=== PATIENT | female | born 2005 | race Two or more races ===

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

== ENCOUNTER → 2025-05-21 | Outpatient (CLI) | payer MEDICAID, SELFPAY ==
--- NOTE | 2025-05-21 12:30 | XR_ITS ---
Examination: Abdomen sonogram, complete Date and time of exam: 05/21/2025 at 1:51 p.m. INDICATION: Epigastric pain for 6 months COMPARISON: None Technique: Multiple real-time grayscale transabdominal sonographic images of the abdomen have been obtained. Findings: Normal liver size and contours, the liver measures 13.4 cm in length. No solid liver mass detected. Color Doppler demonstrates patency of the main portal vein with normal hepatopetal flow. Patent hepatic veins and IVC. Multiple gallstones are present. Gallbladder wall thickness is measured at 4.6 mm. No pericholecystic fluid. No abnormal bile duct dilatation. The CBD is measured at 4 mm. The visualized portions of the pancreas show no mass or abnormal ductal dilatation. The pancreatic tail is obscured by bowel gas. The spleen is normal in size and echogenicity with no focal lesion appreciated. Bilateral renal size and echotexture are within normal limits. The right kidney is measured at 9.7 cm in length and the left kidney is measured at 9.3 cm in length. No hydronephrosis, calculus or solid renal mass is evident. Patent and normal caliber abdominal aorta. No mass, ascites or other significant finding identified. IMPRESSION: Cholelithiasis with nonspecific mild gallbladder wall thickening which could represent acute or chronic cholecystitis. A nuclear medicine hepatobiliary scan with ejection fraction can be considered for further evaluation. No abnormal bile duct dilatation.
== END | disposition home or self-care (01) ==
LOC: CDIM 13:36
DX: K80.20 Calculus of gallbladder without cholecystitis without obstruction (principal); K82.9 Disease of gallbladder, unspecified
CPT/HCPCS: 76700